=== PATIENT | male | born 1990 | race American Indian/Alaskan Native ===

== ENCOUNTER 2016-12-19 08:28 | Emergency (ER) | payer SELFPAY ==
[2016-12-19 08:39] VITALS: BP 120/71
--- NOTE | 2016-12-19 09:34 | Emergency Department Report ---
ED ENT HPI - General Chief complaint: Dental/Oral Stated complaint: RT SIDE MOUTH PAIN/CANT EAT Time Seen by Provider: 12/19/16 09:29 Source: patient Mode of arrival: Ambulatory Limitations: No Limitations - History of Present Illness Initial comments: PT c/o R lower toothache for 2 days. PT states no relief with Oragel or Goody' s powder. PT denies recent dental work. PT States several years ago, he had metal fillings placed that fell out. PT states years ago, he had the old metal fillings replaced with white ones. PT states his white fillings fell out 2-3 years ago. PT state he would have intermittent toothache, but nothing this severe. MD complaint: tooth pain -: Gradual, days(s) (2) Severity scale (0 -10): 10 Quality: constant Consistency: constant Improves with: none Worsens with: eating Context- Dental: history of dental caries, poor dental care Associated Symptoms: gum swelling, toothache. denies: fever - Related Data Previous Rx's Medication Instructions Recorded Last Taken Type Acetaminophen/Codeine [Tylenol #3] 1 tab PO Q6H PRN #12 tab 12/19/16 Unknown Rx Amoxicillin 500 mg PO BID #20 capsule 12/19/16 Unknown Rx Ibuprofen [Motrin] 600 mg PO Q8H PRN #15 tablet 12/19/16 Unknown Rx Allergies Allergy/AdvReac Type Severity Reaction Status Date / Time No Known Allergies Allergy Verified 12/19/16 08:35 ED Dental HPI - General Chief complaint: Dental/Oral Stated complaint: RT SIDE MOUTH PAIN/CANT EAT Time Seen by Provider: 12/19/16 09:29 Source: patient Mode of arrival: Ambulatory Limitations: No Limitations - Related Data Previous Rx's Medication Instructions Recorded Last Taken Type Acetaminophen/Codeine [Tylenol #3] 1 tab PO Q6H PRN #12 tab 12/19/16 Unknown Rx Amoxicillin 500 mg PO BID #20 capsule 12/19/16 Unknown Rx Ibuprofen [Motrin] 600 mg PO Q8H PRN #15 tablet 12/19/16 Unknown Rx Allergies Allergy/AdvReac Type Severity Reaction Status Date / Time No Known Allergies Allergy Verified 12/19/16 08:35 ED Review of Systems ROS: Stated complaint: RT SIDE MOUTH PAIN/CANT EAT Other details as noted in HPI Comment: All other systems reviewed and negative Constitutional: denies: fever ENT: ear pain Skin: denies: change in color Neurological: denies: headache ED Past Medical Hx - Past Medical History Previous Medical History?: Yes Hx Asthma: Yes - Surgical History Past Surgical History?: No - Social History Smoking Status: Smoker, Current Status Unknown Substance Use Type: Marijuana - Medications Home Medications: Home Medications Medication Instructions Recorded Confirmed Last Taken Type Acetaminophen/Codeine [Tylenol #3] 1 tab PO Q6H PRN #12 tab 12/19/16 Unknown Rx Amoxicillin 500 mg PO BID #20 capsule 12/19/16 Unknown Rx Ibuprofen [Motrin] 600 mg PO Q8H PRN #15 tablet 12/19/16 Unknown Rx ED Physical Exam - General Limitations: No Limitations General appearance: alert, in no apparent distress - Head Head exam: Present: atraumatic, normocephalic, normal inspection - Eye Eye exam: Present: normal appearance, PERRL, EOMI. Absent: conjunctival injection, nystagmus - ENT ENT exam: Present: normal orophraynx, mucous membranes moist, TM's normal bilaterally, normal external ear exam - Expanded ENT Exam Expanded Mouth exam: Absent: drooling, trismus Teeth exam: Present: dental caries, dental tenderness #, gingival enlargement, other (no signs of Jeremie's ) 1 - Other (dental decay) 2 - Other (severe decay and tenderness) 3 - Other (tooth missing) Throat exam: Positive: normal inspection - Neck Neck exam: Present: normal inspection, tenderness, full ROM, lymphadenopathy - Respiratory Respiratory exam: Present: normal lung sounds bilaterally. Absent: respiratory distress, wheezes, rales, rhonchi, stridor - Cardiovascular Cardiovascular Exam: Present: regular rate, normal rhythm - Extremities Exam Extremities exam: Present: normal inspection, full ROM - Back Exam Back exam: Present: normal inspection, full ROM. Absent: tenderness, CVA tenderness (R), CVA tenderness (L) - Neurological Exam Neurological exam: Present: alert, oriented X3, CN II-XII intact, normal gait - Psychiatric Psychiatric exam: Present: normal affect, normal mood - Skin Skin exam: Present: warm, dry, intact, normal color ED Course Vital Signs 12/19/16 08:36 Temperature 98.3 F Pulse Rate 72 Respiratory 18 Rate Blood Pressure 120/71 O2 Sat by Pulse 100 Oximetry - Reevaluation(s) Reevaluation #1: 12/19/16 09:38 PT aware of dx and plan of care. PT aware he must follow up with a Dentist - Pulse Oximetry Interpretation Digit-Finger Initial Pulse Oximetry Readin Actions Taken: none ED Medical Decision Making - Differential Diagnosis toothache, dental abscess Critical Care Time: No Critical care attestation.: If time is entered above; I have spent that time in minutes in the direct care of this critically ill patient, excluding procedure time. ED Disposition Clinical Impression: Toothache, Dental decay, Otalgia, right ear Disposition: TO HOME OR SELFCARE Is pt being admited?: No Does the pt Need Aspirin: No Condition: Stable Instructions: Dental Abscess (ED), Dental Caries (ED), Toothache (ED) Additional Instructions: No driving or alcohol after taking Tylenol #3 Follow up with Dentist in 3-5 days Finish all of the Amoxil, even if your toothache improves before you are done with the course Return to the ED if you are having swelling to your face, you can not open your mouth, or you have concerns Prescriptions: Acetaminophen/Codeine [Tylenol #3] 1 tab PO Q6H PRN #12 tab PRN Reason: Pain , Severe (7-10) Amoxicillin 500 mg PO BID #20 capsule Ibuprofen [Motrin] 600 mg PO Q8H PRN #15 tablet PRN Reason: Pain Referrals: PRIMARY MD TACHO [Primary Care Provider] - 3-5 Days VIOLETA CARPENTER MD [Staff Physician] - 3-5 Days [facility] [Outside] - 3-5 Days [facility] [place]Note 3] [Outside] - 3-5 Days Forms: Work/School Release Form(ED) Time of Disposition: 09:41
== END 2016-12-19 09:51 | disposition home or self-care (01) ==
LOC: ED 08:28
DX: K08.89 Other specified disorders of teeth and supporting structures (principal); H92.01 Otalgia, right ear; J45.909 Unspecified asthma, uncomplicated; F12.10 Cannabis abuse, uncomplicated
CPT/HCPCS: 99282

== ENCOUNTER 2017-04-05 13:22 | Emergency (ER) | payer SELFPAY ==
[2017-04-05 14:00] VITALS: BP 114/62
== END 2017-04-05 20:40 | disposition left against medical advice (07) ==
LOC: ED 13:22
DX: Z53.21 Procedure and treatment not carried out due to patient leaving prior to being seen by health care provider (principal)